=== PATIENT | female | born 1970 | race Caucasian/White ===

== ENCOUNTER 2017-08-12 03:16 | Emergency (ER) | payer SELFPAY ==
[~2017-08-12] VITALS: Ht 170.2 cm; Wt 81.6 kg
[2017-08-12] MEDS ORDERED: diphenhydrAMINE 50 MG/1 ML VIAL IM ONE (03:45)
[2017-08-12] MEDS ORDERED: METOCLOPRAMIDE HCL 10 MG/2 ML VIAL IM ONE (03:45)
--- NOTE | 2017-08-12 03:45 | NUR ---
Pt c/o "worst headache of [her] life", which has gradually increased over the past week. Also expressed she had been around coworkers who have the flu and pneumonia.
--- NOTE | 2017-08-12 03:50 | NUR ---
Lab at pt bedside.
[2017-08-12 03:56] LABS: BASOPHILS # (AUTO) 0.1 K/uL (0.0-8.0); BASOPHILS % (AUTO) 0.5 % (0.0-2.0); EOSINOPHILS # (AUTO) 0.6 K/uL (0.0-0.7); EOSINOPHILS % (AUTO) 4.4 % (0.0-7.0); HEMATOCRIT 37.7 % (31.2-41.9); HEMOGLOBIN 12.5 g/dL (10.9-14.3); LYMPHOCYTES # (AUTO) 1.4 K/uL (20.0-40.0); LYMPHOCYTES % (AUTO) 10.6 % (20.5-51.5); MEAN CORPUSCULAR HEMOGLOBIN 25.7 uug (24.7-32.8); MEAN CORPUSCULAR HGB CONC 33 g/dL (32.3-35.6); MEAN CORPUSCULAR VOLUME 77.3 fL (75.5-95.3); MONOCYTES # (AUTO) 1.7 K/uL (2.0-10.0); MONOCYTES % (AUTO) 12.6 % (0.0-11.0); NEUTROPHILS # (AUTO) 9.8 K/uL (1.8-8.9); NEUTROPHILS % (AUTO) 71.9 % (38.5-71.5); PLATELET COUNT (AUTO) 240 K/uL (179-408); RED BLOOD CELL COUNT(AUTO) 4.88 MIL/uL (3.63-4.92); WHITE BLOOD COUNT (AUTO) 13.7 K/uL (3.8-11.8)
[2017-08-12] MEDS ORDERED: METOCLOPRAMIDE HCL 10 MG/2 ML VIAL ONE (04:00)
[2017-08-12] MEDS ORDERED: diphenhydrAMINE 50 MG/1 ML VIAL ONE (04:00)
[2017-08-12 04:05] LABS: CREATININE 0.9 mg/dL (0.6-1.3); POTASSIUM 3.8 mmol/L (3.5-5.1)
--- NOTE | 2017-08-12 04:10 | NUR ---
Pt being taken via wheelchair to CT. No signs of distress noted.
--- NOTE | 2017-08-12 04:17 | NUR ---
Pt back from CT. Awaiting results.
--- NOTE | 2017-08-12 04:50 | NUR ---
Patient does not wish to proceed with medical care recommended by Dr. Ku. Patient given information related to possible complications, up to and including , which could occur as a result of leaving the hospital at this time. Patient verbalizes understanding of risks involved due to leaving against medical advice. Patient has signed AMA form.
[2017-08-12 04:53] VITALS: BP 114/72
== END 2017-08-12 04:54 | disposition left against medical advice (07) ==
LOC: ER 03:19
DX: R51 Headache (principal); R05 Cough; R50.9 Fever, unspecified
CPT/HCPCS: 36415; 70450; 80048; 85025; 87400; 96372 ×2; 99285; A4663; J1200; J2765